=== PATIENT | female | born 1940 | race Caucasian/White ===

== ENCOUNTER 2019-03-12 21:16 | IRF | payer MEDICARE, OTHER, SELFPAY ==
--- NOTE | ~2019-03-12 | XR_ITS ---
EXAMINATION: XR chest 1V portable EXAM DATE: 03/12/2019 21:40 INDICATION: Check existing PICC line position. TECHNIQUE: Portable AP frontal chest x-ray was obtained. There is no prior study for comparison. FINDINGS: Right-sided PICC line is in expected position. There is cardiomegaly. There is pulmonary va scular congestion. Bilateral mid and lower lung zone indistinct reticulation, airspace disease appear ance most consistent with pulmonary edema. No sizable pleural effusion. No pneumothorax. There are no osseous abnormalities identified. There is aortic arterial sclerosis. IMPRESSION: 1. PICC line in position. 2. Cardiomegaly, indistinct reticulation, could be mild pulmonary edema. Clinical correlation. Reviewed, dictated and finalized at location A. GER IMPRESSION: 1. PICC line in position. 2. Cardiomegaly, indistinct reticulation, could be mild pulmonary edema. Clini danielle correlation.
--- NOTE | ~2019-03-12 | US_ITS ---
EXAMINATION: US venous doppler [facility] DATE: 03/17/2019 13:04 INDICATION: Bilateral lower limb pain TECHNIQUE: Be scale images without and with compression and Doppler images of the bilateral lower e xtremity veins were obtained. COMPARISON: None. FINDINGS: The right common femoral vein, profunda femoral vein, femoral vein, popliteal vein, peroneal trunk, p osterior tibial veins, and greater saphenous vein are patent. The left common femoral vein, profunda femoral vein, femoral vein, popliteal vein, peroneal trunk, po sterior tibial veins, and greater saphenous vein are patent. IMPRESSION: 1. Patent bilateral lower extremity veins. No evidence of deep venous thrombosis. Reviewed, dictated and finalized at location A. LER IMPRESSION: 1. Patent bilateral lower extremity veins. No evidence of deep venous thrombosi s.
[2019-03-12 18:05] VITALS: BP 148/78; PULSE 76; RESP 18; TEMP 36.6; O2SAT 96; BMI 29.7
--- NOTE | 2019-03-12 18:36 | ADMGEN ---
This patient, Danielle Mcintyre, was admitted to [facility] Room 222-02. Patient/family oriented to hospital policies and general routines including ID bracelet, bed and alarms, visiting hours, pain management, procedures, bathroom and other care routines, personal items, smoking policy, room service/diet, and visiting hours. Valuables list has been completed. Information on how to activate the Rapid Response Team has been discussed. Patient/Family are encouraged to report perceived risks to care and to ask questions if they do not understand what they are told or what they should do.
[2019-03-12 20:26] VITALS: BP 115/66; PULSE 98; RESP 20; TEMP 36.5; O2SAT 97
[2019-03-12] MEDS: RIVAROXABAN 15 MG TABLET PO (21:30)
[2019-03-12] MEDS: OPTI-GEN TAB 2 TABLET PO (21:30)
[2019-03-12] MEDS: SENNA/DOCUSATE SODIUM TABLET 1 TAB PO (21:30)
[2019-03-12] MEDS: ERTAPENEM 1 GM/NS 50 ML 1 GM/50 ML BAG IVPB (22:16)
[2019-03-13 04:52] LABS: Basophils Absolute Auto 0.1 K/mm3 (0.0-0.1); Basophils Percent Auto 0.6 % (0.2-1.2); Eosinophils Absolute Auto 0.3 K/mm3 (0-0.3); Eosinophils Percent Auto 2.6 % (0-4.4); Hematocrit 27.8 % (37.0-47.0); Hemoglobin 8.4 g/dL (12.0-15.0); Immature Granulocyte Absolute 0.31 K/mm3 (0.00-0.031); Immature Granulocyte Percent A 2.9 % (0-0.5); Lymphocytes Absolute Auto 0.95 K/mm3 (0.9-3.2); Lymphocytes Percent Auto 8.9 % (18.3-44.2); Mean Corpuscular HGB Conc 30.2 g/dl (32-36); Mean Corpuscular Hemoglobin 20.6 pg (26-34); Mean Corpuscular Volume 68.1 fl (80-100); Mean Platelet Volume 9.4 fl (7.4-10.4); Monocytes Absolute Auto 0.9 K/mm3 (0.1-0.6); Monocytes Percent Auto 8.2 % (2.6-8.5); Neutrophils Absolute Auto 8.2 K/mm3 (1.3-6.7); Neutrophils Percent Auto 76.8 % (45.5-73.1); Platelet Count Result 348 k/mm3 (150-375); Red Blood Count 4.08 M/mm3 (4.2-5.4); Red Cell Distribution Width 22.5 % (11.5-14.5); White Blood Count 10.7 K/mm3 (4.5-10.0)
[2019-03-13 05:20] LABS: Blood Urea Nitrogen 8 mg/dL (7-17); Calcium 9.1 mg/dL (8.4-10.2); Carbon Dioxide 24 mmol/L (22-30); Chloride 98 mmol/L (98-107); Estimated CRCL calculation 66 ml/min; Estimated Glomerular Filt Rate > 60; Glucose 128 mg/dL (65-105); Potassium 3.8 mmol/L (3.4-5.0); Sodium 133 mmol/L (137-145)
[2019-03-13 06:00] VITALS: BP 145/75; PULSE 98; RESP 18; TEMP 36.8; O2SAT 91
[2019-03-13] MEDS: polyethylene glycoL 3350 17 GM POWD.PACK PO (09:01)
[2019-03-13] MEDS: LORATADINE 10 MG TABLET PO (09:01)
[2019-03-13] MEDS: OPTI-GEN TAB 2 TABLET PO ×2 (09:01→21:10)
[2019-03-13] MEDS: FERROUS SULFATE 324 MG TABLET PO (09:02)
[2019-03-13] MEDS: ASPIRIN 81 MG CHEWABLE TABLET PO (09:02)
[2019-03-13] MEDS: CALCIUM/VITAMIN D 250 MG TABLET 1 TABLET PO (09:02)
[2019-03-13] MEDS: POTASSIUM CHLORIDE 10 MEQ TABLET.ER PO (09:02)
[2019-03-13] MEDS: ENALAPRIL MALEATE 5 MG TABLET PO (09:02)
[2019-03-13] MEDS: METOPROLOL SUCCINATE EXT REL 50 MG TABCR PO (09:02)
[2019-03-13 14:00] VITALS: BP 147/83; PULSE 86; RESP 20; TEMP 36.7; O2SAT 97
--- NOTE | 2019-03-13 16:12 | WPDREHABHP ---
H&P: HPI History of Present Illness Chief complaint: Right Septic Knee Arthritis Narrative: Danielle Mcintyre is a 78 year old female HISTORY OF PRESENT ILLNESS: The patient's primary rehab impairment category is orthopedic/other The etiologic diagnosis is right knee septic arthritis I saw this patient [id number] on March 13, 2019 at 1:30 p.m. The patient is a 78-year-old white woman with a past medical history of hypertension, osteoarthritis and atrial fibrillation who presented to [facility] and March 06, 2019 after initial evaluation at [facility] with severe pain and swelling in the right knee. Patient denies any prior symptoms in the right knee. That [facility] patient was found with mild leukocytosis with WBC of 12. CRP was elevated to 3.0. She underwent right knee arthrocentesis which revealed an elevated total nucleated cell count ( 87,000 close) and elevated RBCs) 20,000 closed) no differential included. [facility] micro lab reported no growth to date on synovial fluid as of March 16, 2019. drain was removed on March 09, 2019. Medical complications include leukocytosis, fevers, pain, postop hypoxia, and anemia requiring transfusion of 1 unit of packed RBCs in March 07, 2019. Leukocytosis remains with WBC at 10,500, she is afebrile stable on room air and hemodynamically stable with current hemoglobin of 7.4. It is worth mentioning that the patient was transferred to [facility] on vancomycin and cefepime. Due to concern for septic joint she was transferred to [facility] for surgical evaluation. Dr. Veloz performed an I and D with drain placement right knee and March 07, 2019. Rest of it as mentioned above. Patient is discharged to us at weight-bearing as tolerated on the right lower extremity and subcutaneous heparin for DVT prophylaxis. Infectious Disease was consulted and the antibiotics will be Entapenum 1 gram every 24 hours until April 04, 2019. PICC line was placed. Patient will need CBC with differential along with CMP and urinalysis weekly while on IV antibiotic. Incidental findings were a moderate pericardial effusion and echo from January 21, 2019. There was a large pericardial effusion visualized on TTE and March 10, 2019 and the patient is to follow up with outpatient cardiology Therapy was initiated at the acute care facility and the patient transferred to us from [facility] on March 12, 2019 FALLS OR SURGERIES: The patient has had major surgeries in the 100 days prior to admission. They had falls in the past year. They had falls with injury in the past year. PAST MEDICAL HISTORY: hypertension, atrial fibrillation, osteoarthritis, pericardial effusion. PAST SURGICAL HISTORY: Right knee arthrocentesis SOCIAL HISTORY: patient lives with her in a 1 level trailer with 2 steps to enter. Her son was present for the interview as is planning on building a ramp prior to the patient's discharged from inpatient rehab. The was also present. Both the and son confirms that the patient will have support following rehabilitation if needed. She was completely independent prior with no assistive device. She had her enjoy bowling. She reported no falls in the last year she underwent I and D of her right knee while hospitalized at [facility]. FAMILY HISTORY: Noncontributory PRIOR LEVEL OF FUNCTION: Eating was INDEPENDENT Oral Care was INDEPENDENT Toileting Hygiene was INDEPENDENT Shower/Bathing was INDEPENDENT Upper Body Dressing was INDEPENDENT Lower Body Dressing was INDEPENDENT Donning/[place] Footwear was INDEPENDENT Rolling Left and Right was INDEPENDENT Sit to Lying was INDEPENDENT Lying to Sitting was INDEPENDENT Sit to Stand was INDEPENDENT Bed to Chair Transfers was INDEPENDENT Toilet Transfers was INDEPENDENT Walkin
[2019-03-13] MEDS: RIVAROXABAN 15 MG TABLET PO (17:25)
[2019-03-13] MEDS: SENNA/DOCUSATE SODIUM TABLET 1 TAB PO (21:08)
[2019-03-13] MEDS: ERTAPENEM 1 GM/NS 50 ML 1 GM/50 ML BAG IVPB (21:09)
[2019-03-13 21:46] VITALS: BP 144/89; PULSE 78; RESP 16; TEMP 36.5; O2SAT 100
[2019-03-14 06:00] VITALS: BP 150/91; PULSE 99; RESP 20; TEMP 36.6; O2SAT 93
[2019-03-14 08:43] VITALS: PULSE 96
[2019-03-14] MEDS: OPTI-GEN TAB 2 TABLET PO ×2 (08:43→21:00)
[2019-03-14] MEDS: METOPROLOL SUCCINATE EXT REL 50 MG TABCR PO (08:43)
[2019-03-14] MEDS: polyethylene glycoL 3350 17 GM POWD.PACK PO (08:43)
[2019-03-14] MEDS: ENALAPRIL MALEATE 5 MG TABLET PO (08:44)
[2019-03-14] MEDS: LORATADINE 10 MG TABLET PO (08:44)
[2019-03-14] MEDS: POTASSIUM CHLORIDE 10 MEQ TABLET.ER PO (08:44)
[2019-03-14] MEDS: CALCIUM/VITAMIN D 250 MG TABLET 1 TABLET PO (08:44)
[2019-03-14] MEDS: ASPIRIN 81 MG CHEWABLE TABLET PO (08:44)
[2019-03-14] MEDS: FERROUS SULFATE 324 MG TABLET PO (08:44)
[2019-03-14] MEDS: ONDANSETRON HCL ODT 4 MG TABLET (08:46)
[2019-03-14 14:00] VITALS: BP 108/50; PULSE 84; RESP 18; TEMP 36.5; O2SAT 98
--- NOTE | 2019-03-14 14:01 | WPDNEURORHBP ---
Subjective Date/time seen: 03/14/19 14:01 Interval history: this 78-year-old woman is here because of right-sided septic knee arthritis she is much clearer in her head as per family member and slept well and does not have any new specific complaints She particularly denies fever chills sore throat headache nausea vomiting chest pain or shortness of breath Review of Systems Review of Systems: All systems reviewed & are unremarkable except as noted in HPI and below Constitutional: Constitutional: Reports no additional constitutional complaints Eyes: Eyes: Reports no additional eye complaints ENT: Reports system reviewed and no additional complaints, except as documented Cardiovascular: Cardiovascular: Reports no additional cardiovascular complaints Respiratory: Respiratory: Reports no additional respiratory complaints Gastrointestinal: Gastrointestinal: Reports no additional gastrointestinal complaints Musculoskeletal: Musculoskeletal: Reports no additional musculoskeletal complaints Integumentary/Breasts: Skin/Breast: Reports system reviewed and no additional complaints, except as docu Neurologic: Comments: patient's mental status has improved as per family member comparing to but she was at the other hospital when she was encephalopathic Psychiatric: Psychiatric: Reports no additional psychiatric complaints Functional Status Ambulation Ability Ability to Ambulate 10 Feet: Contact Guard Ambulation Assistive Devices: Walker, Wheeled Exam Const: General: comfortable and no acute distress HENMT: General nose exam: Normal nares present Mouth: Yes moist mucous membranes Eyes: General: appearance normal, both eyes and all related structures Neck: Neck: supple and no JVD Resp: Effort & Inspection: normal respiratory effort Auscultation: clear to auscultation bilaterally Cardio: Rate: regular rate Rhythm: regular rhythm GI: GI Palp: Yes Soft to palpation Auscultation: normal bowel sounds Skin: General skin exam: normal color and no rashes or lesions noted Neuro: Other: mental status is normal, cranial examination is normal Patient does have decrease strength in both upper lower extremity primarily in the lower extremities however engage in therapy and doing relatively better Extrem: Other: the incision over the right knee is clean and healthy and the swelling is less Psych: Mental Status: mental status grossly normal Objective Data Vital Signs Vital Signs: Vital Signs - 24 hr 03/13/19 21:46 03/14/19 06:00 03/14/19 08:43 Temperature 36.5 C 36.6 C Pulse Rate 78 99 96 Respiratory Rate 16 20 Blood Pressure 144/89 H 150/91 H Pulse Oximetry 100 93 Intake/Output Intake/Output: Intake & Output 01/23/20 01/24/20 01/25/20 01/26/20 23:59 23:59 23:59 23:59 Intake Total 50 720 240 Balance 50 720 240 Meds/Results Medications: Active Medications Generic Name Dose Route Start Last Admin Trade Name Freq PRN Reason Stop Dose Admin Hydrocodone Bitart/Acetaminophen 1 - 2 tab 03/13/19 09:14 03/14/19 08:53 Bruning 5-325 Mg PO 2 tab Q4-6H PRN Administration Pain Rated 4-6 Aspirin 81 mg 03/13/19 09:00 03/14/19 08:44 Aspirin Chewable PO 81 mg DAILY KATLIN Administration Bismuth Subsalicylate 524 mg 03/14/19 00:00 Pepto-Bismol Susp PO Q1H PRN Cramping Calcium Carbonate 1 tablet 03/13/19 09:00 03/14/19 08:44 Oscal +D 250 Mg PO 1 tablet DAILY KATLIN Administration Diltiazem HCl 180 mg 03/13/19 09:00 03/14/19 08:43 Cardizem Cd PO 180 mg DAILY KATLIN Administration Enalapril Maleate 5 mg 03/13/19 09:00 03/14/19 08:44 Vasotec PO 5 mg DAILY KATLIN Administration Ferrous Sulfate 324 mg 03/13/19 08:00 03/14/19 08:44 Ferrous Sulfate PO 324 mg DAILY@0800 KATLIN Administration Ertapenem 1 gm in 50 mls @ 100 mls/hr 03/12/19 21:00 03/13/19 21:09 Invanz 1 Gm/Ns 50 Ml IVPB 100 mls/hr HS KATLIN Administration Loratadine 1
[2019-03-14] MEDS: RIVAROXABAN 15 MG TABLET PO (18:22)
[2019-03-14] MEDS: ERTAPENEM 1 GM/NS 50 ML 1 GM/50 ML BAG IVPB (20:58)
[2019-03-14] MEDS: SENNA/DOCUSATE SODIUM TABLET 1 TAB PO (21:00)
[2019-03-14] MEDS: ONDANSETRON HCL ODT 4 MG TABLET PO (21:15)
[2019-03-14 22:00] VITALS: BP 142/87; PULSE 84; RESP 18; TEMP 36.9; O2SAT 91
[2019-03-15 06:00] VITALS: BP 169/81; PULSE 96; RESP 18; TEMP 36.6; O2SAT 94
[2019-03-15] MEDS: polyethylene glycoL 3350 17 GM POWD.PACK PO (09:10)
[2019-03-15] MEDS: FERROUS SULFATE 324 MG TABLET PO (09:10)
[2019-03-15] MEDS: LORATADINE 10 MG TABLET PO (09:11)
[2019-03-15] MEDS: CALCIUM/VITAMIN D 250 MG TABLET 1 TABLET PO (09:11)
[2019-03-15] MEDS: ASPIRIN 81 MG CHEWABLE TABLET PO (09:11)
[2019-03-15] MEDS: ENALAPRIL MALEATE 5 MG TABLET PO (09:11)
[2019-03-15] MEDS: METOPROLOL SUCCINATE EXT REL 50 MG TABCR PO (09:11)
[2019-03-15] MEDS: OPTI-GEN TAB 2 TABLET PO ×2 (09:11→23:03)
[2019-03-15] MEDS: POTASSIUM CHLORIDE 10 MEQ TABLET.ER PO (09:12)
--- NOTE | 2019-03-15 11:35 | PC.NURSE ---
Nurse flight attendant/inflight manager spoke with infection control. Pt. no longer requires isolation status.
--- NOTE | 2019-03-15 11:43 | RPD ---
INDIVIDUALIZED PLAN OF CARE FOR Danielle Mcintyre Brief Synthesis of Pre-Admission Screen, Post-Admission Evaluation and Therapy Evaluations: The patient presents to rehab with right knee septic arthritis. Comorbidities include hypertension, atrial fibrillation, osteoarthritis, hyperlipidemia, anemia. The patient requires physician services for medical oversight, management of post-op complications in setting of present comorbidities, and pain management. The patient requires nursing services for anticoagulation therapy, DVT prophylactics, IV administration, infection protection, medication management and education, pressure relief, and wound care. Deficits include:ADLs, Balance, Endurance, Mobility, Pain Management, ROM, Strength, Transfers, Safety Rn Security/Case Management for: Discharge Planning and Patient/Family Counseling Physical Therapy: 5 days per week for 90 minutes. Treatments may include: Therapeutic Exercise, Gait Training, Neuromuscular Re-education, Transfer Training, Community Reintegration, Bed Mobility, Patient/Family Education, Wheelchair Mobility Group Therapy/Concurrent Therapy Rationales: -Improve attention span during functional activities in a distracted environment. -Enhance problem solving and/or adequate judgment skills during functional activities in a distracted environment. -Promote increased safety awareness in a distracted environment to reduce fall risk with functional tasks, transfers, and ambulation to allow a more safe, self-sufficient return to the home environment. -Improve dynamic balance skills to promote safety and independence with functional activities in a distracted environment for maximum gain. Occupational Therapy: 5 days per week for 90 minutes. Treatments may include: Therapeutic Exercise, Therapeutic Activity, Cognitive Training, Self-Care Transfer Training, Community Reintegration, Home Management, Patient/Family Education, Wheelchair Mobility Training, Energy Conservation Training Group Therapy/Concurrent Therapy Rationales: -Allow therapist to observe and teach generalization and carry-over of skills learned in individual therapy. -Enhance problem solving and sequencing skills during therapeutic activities in a distracted environment. -Promote increased safety awareness in a realistic setting to reduce fall risk with functional tasks due to visual and verbal distractions. -Increase functional level with ADLs, ADL transfers and use of adaptive equipment through therapeutic activities with others while promoting safety to allow a more safe, self-sufficient return home. Medical Prognosis: Good Anticipated Length of Stay: 10 days Rehab Goals: Eating Goal: 06-Independent Oral Hygiene Goal: 06-Independent Toileting Hygiene Goal: 06-Independent Shower/Bathe Self Goal: 06-Independent Upper Body Dressing Goal: 06-Independent Lower Body Dressing Goal: 06-Independent Putting On/Taking Off Footwear Goal: 06-Independent Rolling Left and Right Goal: 06-Independent Sit to Lying Goal: 06-Independent Lying to Sitting on Side of Bed Goal: 06-Independent Sit to Stand Goal: 06-Independent Chair/[id number] Transfer Goal: 06-Independent Toilet Transfer Goal: 06-Independent Car Transfer Goal: 06-Independent Walk 10' Goal: 06-Independent Walk 50' with Two Turns Goal: 06-Independent Walk 150' Goal: 06-Independent Walk 10' on Uneven Surface Goal: 06-Independent 1 Step (Curb) Goal: 06-Independent 4 Steps Goal: 06-Independent 12 Steps Goal Score: 06-Independent Picking Up Object Goal: 06-Independent Anticipated discharge destination: Home
[2019-03-15 13:47] VITALS: BMI 29.7
[2019-03-15 14:36] VITALS: BP 121/50; PULSE 92; RESP 20; TEMP 36.9; O2SAT 93
[2019-03-15] MEDS: RIVAROXABAN 15 MG TABLET PO (17:21)
[2019-03-15] MEDS: ERTAPENEM 1 GM/NS 50 ML 1 GM/50 ML BAG IVPB (20:21)
[2019-03-15] MEDS: SENNA/DOCUSATE SODIUM TABLET 1 TAB PO (20:22)
[2019-03-15 22:00] VITALS: BP 145/73; PULSE 81; RESP 20; TEMP 36.4; O2SAT 93
[2019-03-16 06:00] VITALS: BP 150/66; PULSE 79; RESP 20; TEMP 36.2; O2SAT 92
[2019-03-16 10:30] VITALS: PULSE 79
[2019-03-16] MEDS: FERROUS SULFATE 324 MG TABLET PO (10:30)
[2019-03-16] MEDS: ASPIRIN 81 MG CHEWABLE TABLET PO (10:30)
[2019-03-16] MEDS: METOPROLOL SUCCINATE EXT REL 50 MG TABCR PO (10:30)
[2019-03-16] MEDS: CALCIUM/VITAMIN D 250 MG TABLET 1 TABLET PO (10:31)
[2019-03-16] MEDS: LORATADINE 10 MG TABLET PO (10:32)
[2019-03-16] MEDS: OPTI-GEN TAB 2 TABLET PO ×2 (10:32→21:08)
[2019-03-16] MEDS: ENALAPRIL MALEATE 5 MG TABLET PO (10:32)
[2019-03-16] MEDS: polyethylene glycoL 3350 17 GM POWD.PACK PO (10:33)
[2019-03-16] MEDS: POTASSIUM CHLORIDE 10 MEQ TABLET.ER PO (10:34)
--- NOTE | 2019-03-16 12:48 | WPDNEURORHBP ---
Subjective Date/time seen: 03/16/19 12:48 Interval history: this patient is recuperating on the acute rehab after having at rather stormy course with right septic knee arthritis she is receiving IV antibiotics and will needed till middle of March She denies any chest pain shortness of breath nausea vomiting headache chest pain fever chills Review of Systems Constitutional: Constitutional: Reports no additional constitutional complaints Eyes: Eyes: Reports no additional eye complaints ENT: Reports system reviewed and no additional complaints, except as documented Cardiovascular: Cardiovascular: Reports no additional cardiovascular complaints Respiratory: Respiratory: Reports no additional respiratory complaints Gastrointestinal: Gastrointestinal: Reports no additional gastrointestinal complaints Genitourinary: Genitourinary: Reports no additional female genitourinary complaints Musculoskeletal: Musculoskeletal: Reports no additional musculoskeletal complaints Integumentary/Breasts: Skin/Breast: Reports system reviewed and no additional complaints, except as docu Neurologic: Reports system reviewed and no additional complaints, except as documented Psychiatric: Psychiatric: Reports no additional psychiatric complaints Functional Status Ambulation Ability Ability to Ambulate 10 Feet: Contact Guard Ambulation Assistive Devices: Walker, Wheeled Exam Const: General: comfortable and no acute distress HENMT: General nose exam: Normal nares present Mouth: Yes moist mucous membranes Eyes: General: appearance normal, both eyes and all related structures Neck: Neck: no JVD Carotids: bruit Resp: Effort & Inspection: normal respiratory effort Auscultation: clear to auscultation bilaterally Cardio: Rate: regular rate Rhythm: regular rhythm GI: GI Palp: Yes Soft to palpation Auscultation: normal bowel sounds Objective Data Vital Signs Vital Signs: Vital Signs - 24 hr 03/15/19 14:36 03/15/19 22:00 03/16/19 06:00 Temperature 36.9 C 36.4 C 36.2 C L Pulse Rate 92 81 79 Respiratory Rate 20 20 20 Blood Pressure 121/50 L 145/73 H 150/66 H Pulse Oximetry 93 93 92 Intake/Output Intake/Output: Intake & Output 03/13/19 03/14/19 03/15/19 03/16/19 23:59 23:59 23:59 23:59 Intake Total 770 870 770 420 Balance 770 870 770 420 Meds/Results Medications: Active Medications Generic Name Dose Route Start Last Admin Trade Name Freq PRN Reason Stop Dose Admin Hydrocodone Bitart/Acetaminophen 1 - 2 tab 03/13/19 09:14 03/16/19 04:05 Yoder 5-325 Mg PO 1 tab Q4-6H PRN Administration Pain Rated 4-6 Aspirin 81 mg 03/13/19 09:00 03/16/19 10:30 Aspirin Chewable PO 81 mg DAILY KATLIN Administration Bismuth Subsalicylate 524 mg 03/14/19 00:00 Pepto-Bismol Susp PO Q1H PRN Cramping Calcium Carbonate 1 tablet 03/13/19 09:00 03/16/19 10:31 Oscal +D 250 Mg PO 1 tablet DAILY KATLIN Administration Diltiazem HCl 180 mg 03/13/19 09:00 03/16/19 10:31 Cardizem Cd PO 180 mg DAILY KATLIN Administration Enalapril Maleate 5 mg 03/13/19 09:00 03/16/19 10:32 Vasotec PO 5 mg DAILY KATLIN Administration Ferrous Sulfate 324 mg 03/13/19 08:00 03/16/19 10:30 Ferrous Sulfate PO 324 mg DAILY@0800 KATLIN Administration Ertapenem 1 gm in 50 mls @ 100 mls/hr 03/12/19 21:00 03/15/19 20:51 Invanz 1 Gm/Ns 50 Ml IVPB Infused HS KATLIN Infusion Loratadine 10 mg 03/13/19 09:00 03/16/19 10:32 Claritin PO 04/12/19 09:01 10 mg DAILY KATLIN Administration Metoprolol Succinate 50 mg 03/13/19 09:00 03/15/19 09:11 Toprol Xl PO 50 mg DAILY KATLIN Administration Multivitamins/Minerals 2 tablet 03/12/19 21:10 03/16/19 10:32 Ocuvite PO 2 tablet Q12HR KATLIN Administration Ondansetron HCl 4 mg 03/14/19 00:11 03/14/19 21:15 Zofran Odt PO 4 mg Q6H PRN Administration Nausea And Vomiting Polyethylene Glycol 17 gm 03/13/19 09:00
[2019-03-16 14:00] VITALS: BP 126/71; PULSE 90; RESP 18; TEMP 36.5; O2SAT 91
[2019-03-16] MEDS: RIVAROXABAN 15 MG TABLET PO (18:00)
[2019-03-16 20:33] VITALS: BP 144/69; PULSE 87; RESP 18; TEMP 36.1; O2SAT 97
[2019-03-16] MEDS: ERTAPENEM 1 GM/NS 50 ML 1 GM/50 ML BAG IVPB (21:06)
[2019-03-17 05:42] VITALS: BP 149/90; PULSE 81; RESP 18; TEMP 36.2; O2SAT 92
[2019-03-17 10:26] VITALS: PULSE 82
[2019-03-17] MEDS: METOPROLOL SUCCINATE EXT REL 50 MG TABCR PO (10:26)
[2019-03-17] MEDS: polyethylene glycoL 3350 17 GM POWD.PACK PO (10:26)
[2019-03-17] MEDS: ASPIRIN 81 MG CHEWABLE TABLET PO (10:27)
[2019-03-17] MEDS: POTASSIUM CHLORIDE 10 MEQ TABLET.ER PO (10:27)
[2019-03-17] MEDS: OPTI-GEN TAB 2 TABLET PO ×2 (10:27→20:58)
[2019-03-17] MEDS: FERROUS SULFATE 324 MG TABLET PO (10:27)
[2019-03-17] MEDS: ENALAPRIL MALEATE 5 MG TABLET PO (10:27)
[2019-03-17] MEDS: LORATADINE 10 MG TABLET PO (10:27)
[2019-03-17] MEDS: CALCIUM/VITAMIN D 250 MG TABLET 1 TABLET PO (10:27)
--- NOTE | 2019-03-17 12:41 | PC.NURSE ---
Patient left floor for dopplar of BLT LE
--- NOTE | 2019-03-17 13:06 | PC.NURSE ---
Patient returned to room
--- NOTE | 2019-03-17 13:57 | WPDNEURORHBP ---
Subjective Date/time seen: 03/17/19 13:57 Interval history: patient was complaining of pain in the right calf and also low his bad knees for which I order the venous Doppler and it was negative Otherwise patient has remained stable without any other complaints Review of Systems Constitutional: Constitutional: Reports no additional constitutional complaints Eyes: Eyes: Reports no additional eye complaints ENT: Reports system reviewed and no additional complaints, except as documented Cardiovascular: Cardiovascular: Reports no additional cardiovascular complaints Respiratory: Respiratory: Reports no additional respiratory complaints Gastrointestinal: Gastrointestinal: Reports no additional gastrointestinal complaints Genitourinary: Genitourinary: Reports no additional female genitourinary complaints Musculoskeletal: Musculoskeletal: Reports no additional musculoskeletal complaints Integumentary/Breasts: Skin/Breast: Reports system reviewed and no additional complaints, except as docu Neurologic: Reports system reviewed and no additional complaints, except as documented Psychiatric: Psychiatric: Reports no additional psychiatric complaints Functional Status Ambulation Ability Ability to Ambulate 10 Feet: Contact Guard Ambulation Assistive Devices: Walker, Wheeled Exam Const: General: comfortable and no acute distress HENMT: General nose exam: Normal nares present Mouth: Yes moist mucous membranes Eyes: General: appearance normal, both eyes and all related structures Neck: Neck: supple and no JVD Resp: Effort & Inspection: normal respiratory effort Auscultation: clear to auscultation bilaterally Cardio: Rate: regular rate Rhythm: regular rhythm GI: GI Palp: Yes Soft to palpation Auscultation: normal bowel sounds Skin: General skin exam: normal color and no rashes or lesions noted Neuro: Other: patient's strength and endurance is improving mental status is also improving memory is improving cranial examination is normal Extrem: Other: right knee is tender and decreased range of motions are noted obviously from the being treated septic arthritis right calf is tender however patient's venous Doppler is negative Psych: Mental Status: mental status grossly normal Objective Data Vital Signs Vital Signs: Vital Signs - 24 hr 03/16/19 14:00 03/16/19 20:33 03/17/19 05:42 Temperature 36.5 C 36.1 C L 36.2 C L Pulse Rate 90 87 81 Respiratory Rate 18 18 18 Blood Pressure 126/71 144/69 H 149/90 H Pulse Oximetry 91 97 92 03/17/19 10:26 Temperature Pulse Rate 82 Respiratory Rate Blood Pressure Pulse Oximetry Intake/Output Intake/Output: Intake & Output 03/14/19 03/15/19 03/16/19 03/17/19 23:59 23:59 23:59 23:59 Intake Total 685 640 7257 720 Balance 847 534 9074 720 Meds/Results Medications: Active Medications Generic Name Dose Route Start Last Admin Trade Name Freq PRN Reason Stop Dose Admin Hydrocodone Bitart/Acetaminophen 1 - 2 tab 03/13/19 09:14 03/17/19 10:25 Zullinger 5-325 Mg PO 1 tab Q4-6H PRN Administration Pain Rated 4-6 Aspirin 81 mg 03/13/19 09:00 03/17/19 10:27 Aspirin Chewable PO 81 mg DAILY KATLIN Administration Bismuth Subsalicylate 524 mg 03/14/19 00:00 Pepto-Bismol Susp PO Q1H PRN Cramping Calcium Carbonate 1 tablet 03/13/19 09:00 03/17/19 10:27 Oscal +D 250 Mg PO 1 tablet DAILY KATLIN Administration Diltiazem HCl 180 mg 03/13/19 09:00 03/17/19 10:27 Cardizem Cd PO 180 mg DAILY KATLIN Administration Enalapril Maleate 5 mg 03/13/19 09:00 03/17/19 10:27 Vasotec PO 5 mg DAILY KATLIN Administration Ferrous Sulfate 324 mg 03/13/19 08:00 03/17/19 10:27 Ferrous Sulfate PO 324 mg DAILY@0800 KATLIN Administration Ertapenem 1 gm in 50 mls @ 100 mls/hr 03/12/19 21:00 03/16/19 21:35 Invanz 1 Gm/Ns 50 Ml IVPB Infused HS KATLIN Infusion Loratadine 10 mg 03/13/19 09:00 03/17/19 10:27
[2019-03-17 14:00] VITALS: BP 131/72; PULSE 79; RESP 18; TEMP 35.9; O2SAT 97
[2019-03-17] MEDS: RIVAROXABAN 15 MG TABLET PO (20:47)
[2019-03-17] MEDS: SENNA/DOCUSATE SODIUM TABLET 1 TAB PO (20:48)
[2019-03-17] MEDS: ERTAPENEM 1 GM/NS 50 ML 1 GM/50 ML BAG IVPB (21:36)
[2019-03-17 21:51] VITALS: BP 143/69; PULSE 88; RESP 20; TEMP 36.6; O2SAT 94
[2019-03-18] MEDS: CALCIUM/VITAMIN D 250 MG TABLET 1 TABLET PO (09:37)
[2019-03-18] MEDS: FERROUS SULFATE 324 MG TABLET PO (09:37)
[2019-03-18] MEDS: ASPIRIN 81 MG CHEWABLE TABLET PO (09:37)
[2019-03-18 09:38] VITALS: PULSE 88
[2019-03-18] MEDS: LORATADINE 10 MG TABLET PO (09:38)
[2019-03-18] MEDS: OPTI-GEN TAB 2 TABLET PO ×2 (09:38→20:32)
[2019-03-18] MEDS: METOPROLOL SUCCINATE EXT REL 50 MG TABCR PO (09:38)
[2019-03-18] MEDS: ENALAPRIL MALEATE 5 MG TABLET PO (09:38)
[2019-03-18] MEDS: POTASSIUM CHLORIDE 10 MEQ TABLET.ER PO (09:39)
[2019-03-18] MEDS: polyethylene glycoL 3350 17 GM POWD.PACK PO (09:39)
--- NOTE | 2019-03-18 11:57 | WPDNEURORHBP ---
Subjective Date/time seen: 03/18/19 11:57 Interval history: patient is here with septic arthritis of the right and doing fairly well apart from complains of the pain around the knee and the leg the Doppler venous of lower extremities was negative for any DVT Review of Systems Constitutional: Constitutional: Reports no additional constitutional complaints Eyes: Eyes: Reports no additional eye complaints ENT: Reports system reviewed and no additional complaints, except as documented Cardiovascular: Cardiovascular: Reports no additional cardiovascular complaints Respiratory: Respiratory: Reports no additional respiratory complaints Gastrointestinal: Gastrointestinal: Reports no additional gastrointestinal complaints Genitourinary: Genitourinary: Reports no additional female genitourinary complaints Musculoskeletal: Comments: continues to complain of the right knee and the right leg pain Integumentary/Breasts: Skin/Breast: Reports system reviewed and no additional complaints, except as docu Neurologic: Reports system reviewed and no additional complaints, except as documented Functional Status Ambulation Ability Ability to Ambulate 10 Feet: Standby Assistance Ability to Ambulate 50 Feet With 2 Turns: Contact Guard Ambulation Assistive Devices: Walker, Wheeled Exam Const: General: comfortable and no acute distress HENMT: General nose exam: Normal nares present Mouth: Yes moist mucous membranes Eyes: General: appearance normal, both eyes and all related structures Neck: Neck: supple and no JVD Resp: Effort & Inspection: normal respiratory effort Auscultation: clear to auscultation bilaterally Cardio: Rate: regular rate Rhythm: regular rhythm GI: GI Palp: Yes Soft to palpation Auscultation: normal bowel sounds Skin: General skin exam: normal color and no rashes or lesions noted Other: the swelling of the right knee is less likewise swelling of the right lower extremity is less Neuro: Other: mental status examination is normal except some sundowning, cranial nerve examination is normal the strength is improving is still needing assistance in the activities of daily living Extrem: Other: right knee swelling is less and right leg swelling is less Psych: Mental Status: mental status grossly normal Objective Data Vital Signs Vital Signs: Vital Signs - 24 hr 03/17/19 14:00 03/17/19 21:51 03/18/19 09:38 Temperature 35.9 C L 36.6 C Pulse Rate 79 88 88 Respiratory Rate 18 20 Blood Pressure 131/72 143/69 H Pulse Oximetry 97 94 Intake/Output Intake/Output: Intake & Output 01/27/20 03/16/19 03/17/19 03/18/19 23:59 23:59 23:59 23:59 Intake Total 770 1190 1440 420 Balance 770 1190 1440 420 Meds/Results Medications: Active Medications Generic Name Dose Route Start Last Admin Trade Name Freq PRN Reason Stop Dose Admin Hydrocodone Bitart/Acetaminophen 1 - 2 tab 03/13/19 09:14 03/18/19 09:44 [place] 5-325 Mg PO 2 tab Q4-6H PRN Administration Pain Rated 4-6 Aspirin 81 mg 03/13/19 09:00 03/18/19 09:37 Aspirin Chewable PO 81 mg DAILY KATLIN Administration Bismuth Subsalicylate 524 mg 03/14/19 00:00 Pepto-Bismol Susp PO Q1H PRN Cramping Calcium Carbonate 1 tablet 03/13/19 09:00 03/18/19 09:37 Oscal +D 250 Mg PO 1 tablet DAILY KATLIN Administration Diltiazem HCl 180 mg 03/13/19 09:00 03/18/19 09:38 Cardizem Cd PO 180 mg DAILY KATLIN Administration Enalapril Maleate 5 mg 03/13/19 09:00 03/18/19 09:38 Vasotec PO 5 mg DAILY KATLIN Administration Ferrous Sulfate 324 mg 03/13/19 08:00 03/18/19 09:37 Ferrous Sulfate PO 324 mg DAILY@0800 KATLIN Administration Ertapenem 1 gm in 50 mls @ 100 mls/hr 03/12/19 21:00 03/17/19 21:36 Invanz 1 Gm/Ns 50 Ml IVPB 100 mls/hr HS KATLIN Administration Loratadine 10 mg 03/13/19 09:00 03/18/19 09:38 Claritin PO 04/12/19 09:01 10 mg DAILY KATLIN Administration Metoprolo
[2019-03-18 14:00] VITALS: BP 133/65; PULSE 74; RESP 17; TEMP 36.3; O2SAT 96
[2019-03-18] MEDS: RIVAROXABAN 15 MG TABLET PO (20:30)
[2019-03-18] MEDS: SENNA/DOCUSATE SODIUM TABLET 1 TAB PO (20:34)
[2019-03-18 22:00] VITALS: BP 161/81; PULSE 88; RESP 18; TEMP 36.6; O2SAT 93
[2019-03-19] MEDS: ERTAPENEM 1 GM/NS 50 ML 1 GM/50 ML BAG IVPB ×2 (01:07→20:14)
[2019-03-19 06:00] VITALS: BP 140/85; PULSE 88; RESP 18; TEMP 36.6; O2SAT 96
[2019-03-19] MEDS: ASPIRIN 81 MG CHEWABLE TABLET PO (09:37)
[2019-03-19] MEDS: FERROUS SULFATE 324 MG TABLET PO (09:37)
[2019-03-19] MEDS: ENALAPRIL MALEATE 5 MG TABLET PO (09:37)
[2019-03-19] MEDS: CALCIUM/VITAMIN D 250 MG TABLET 1 TABLET PO (09:37)
[2019-03-19 09:38] VITALS: PULSE 88
[2019-03-19] MEDS: LORATADINE 10 MG TABLET PO (09:38)
[2019-03-19] MEDS: METOPROLOL SUCCINATE EXT REL 50 MG TABCR PO (09:38)
[2019-03-19] MEDS: OPTI-GEN TAB 2 TABLET PO ×2 (09:38→23:28)
[2019-03-19] MEDS: polyethylene glycoL 3350 17 GM POWD.PACK PO (09:39)
[2019-03-19] MEDS: POTASSIUM CHLORIDE 10 MEQ TABLET.ER PO (09:39)
--- NOTE | 2019-03-19 10:52 | PCPTNOTE ---
Danielle Mcintyre was evaluated for a wheeled walker on 03/19/2019 by this physical therapist. The wheeled walker will resolve patient's mobility limitations and will be used for ADL's within the home. The patient can safely use the wheeled walker. ?The wheeled walker will resolve the patient?s mobility deficits, including transfers, walking in home, and completing ADL's. Edyta Casillas PT
--- NOTE | 2019-03-19 13:34 | WPDNEURORHBP ---
Subjective Date/time seen: 03/19/19 13:34 Interval history: patient is complaining of cough which probably is from upper respiratory infection she does not look septic of the however clearly is being treated with IV antibiotics for septic arthritis Overall status is improving she does not have any complaints of headache nausea vomiting chest pain or shortness She does have a right leg grams which they get better when she is laying down or keeps the leg propped up Review of Systems Constitutional: Constitutional: Reports no additional constitutional complaints Eyes: Eyes: Reports no additional eye complaints ENT: Reports system reviewed and no additional complaints, except as documented Cardiovascular: Cardiovascular: Reports no additional cardiovascular complaints Respiratory: Respiratory: Reports no additional respiratory complaints Gastrointestinal: Gastrointestinal: Reports no additional gastrointestinal complaints Genitourinary: Genitourinary: Reports no additional female genitourinary complaints Musculoskeletal: Musculoskeletal: Reports no additional musculoskeletal complaints Integumentary/Breasts: Skin/Breast: Reports system reviewed and no additional complaints, except as docu Neurologic: Reports system reviewed and no additional complaints, except as documented Psychiatric: Psychiatric: Reports no additional psychiatric complaints Functional Status Ambulation Ability Ability to Ambulate 10 Feet: Standby Assistance Ability to Ambulate 50 Feet With 2 Turns: Contact Guard Ambulation Assistive Devices: Walker, Wheeled Exam Const: General: comfortable and no acute distress HENMT: General nose exam: Normal nares present Mouth: Yes moist mucous membranes Eyes: General: appearance normal, both eyes and all related structures Neck: Neck: supple and no JVD Resp: Effort & Inspection: normal respiratory effort Auscultation: clear to auscultation bilaterally Cardio: Rate: regular rate Rhythm: regular rhythm GI: GI Palp: Yes Soft to palpation Auscultation: normal bowel sounds Skin: General skin exam: normal color and no rashes or lesions noted Neuro: Other: the decreased endurance and the ability to perform the activities of daily living is improving Extrem: Other: the right knee is relatively is swollen however better than before that is the knee where she had the septic arthritis Psych: Mental Status: mental status grossly normal Objective Data Vital Signs Vital Signs: Vital Signs - 24 hr 03/18/19 14:00 03/18/19 22:00 03/19/19 06:00 Temperature 36.3 C L 36.6 C 36.6 C Pulse Rate 74 88 88 Respiratory Rate 17 18 18 Blood Pressure 133/65 161/81 H 140/85 Pulse Oximetry 96 93 96 01/31/20 09:38 Temperature Pulse Rate 88 Respiratory Rate Blood Pressure Pulse Oximetry Intake/Output Intake/Output: Intake & Output 03/16/19 03/17/19 03/18/19 03/19/19 23:59 23:59 23:59 23:59 Intake Total 1190 1490 1140 1080 Balance 1190 1490 1140 1080 Meds/Results Medications: Active Medications Generic Name Dose Route Start Last Admin Trade Name Freq PRN Reason Stop Dose Admin Hydrocodone Bitart/Acetaminophen 1 - 2 tab 03/13/19 09:14 03/19/19 09:51 [place] 5-325 Mg PO 2 tab Q4-6H PRN Administration Pain Rated 4-6 Aspirin 81 mg 03/13/19 09:00 03/19/19 09:37 Aspirin Chewable PO 81 mg DAILY [facility] Administration Bismuth Subsalicylate 524 mg 03/14/19 00:00 Pepto-Bismol Susp PO Q1H PRN Cramping Calcium Carbonate 1 tablet 03/13/19 09:00 03/19/19 09:37 Oscal +D 250 Mg PO 1 tablet DAILY KATLIN Administration Diltiazem HCl 180 mg 03/13/19 09:00 03/19/19 09:37 Cardizem Cd PO 180 mg DAILY KATLIN Administration Enalapril Maleate 5 mg 03/13/19 09:00 03/19/19 09:37 Vasotec PO 5 mg DAILY KATLIN Administration Ferrous Sulfate 324 mg 03/13/19 08:00 03/19/19 09:37 Ferrous Sulfate PO 324 mg DAILY@0800 KATLIN Administration Erta
[2019-03-19 14:00] VITALS: BP 126/75; PULSE 66; RESP 18; TEMP 36.4; O2SAT 96
[2019-03-19] MEDS: RIVAROXABAN 15 MG TABLET PO (18:21)
[2019-03-19] MEDS: SENNA/DOCUSATE SODIUM TABLET 1 TAB PO (20:14)
[2019-03-19 22:00] VITALS: BP 158/63; PULSE 78; RESP 20; TEMP 36.3; O2SAT 96
[2019-03-20 05:26] LABS: Basophils Absolute Auto 0.1 K/mm3 (0.0-0.1); Basophils Percent Auto 0.4 % (0.2-1.2); Eosinophils Absolute Auto 0.4 K/mm3 (0-0.3); Eosinophils Percent Auto 3.4 % (0-4.4); Hematocrit 25.3 % (37.0-47.0); Hemoglobin 7.7 g/dL (12.0-15.0); Immature Granulocyte Absolute 0.13 K/mm3 (0.00-0.031); Immature Granulocyte Percent A 1.2 % (0-0.5); Lymphocytes Absolute Auto 1.36 K/mm3 (0.9-3.2); Lymphocytes Percent Auto 12.1 % (18.3-44.2); Mean Corpuscular HGB Conc 30.4 g/dl (32-36); Mean Corpuscular Hemoglobin 21.4 pg (26-34); Mean Corpuscular Volume 70.3 fl (80-100); Mean Platelet Volume 10.3 fl (7.4-10.4); Monocytes Absolute Auto 1.1 K/mm3 (0.1-0.6); Monocytes Percent Auto 9.7 % (2.6-8.5); Neutrophils Absolute Auto 8.3 K/mm3 (1.3-6.7); Neutrophils Percent Auto 73.2 % (45.5-73.1); Platelet Count Result 317 k/mm3 (150-375); White Blood Count 11.3 K/mm3 (4.5-10.0)
[2019-03-20 05:43] LABS: Blood Urea Nitrogen 18 mg/dL (7-17); Calcium 9.2 mg/dL (8.4-10.2); Carbon Dioxide 30 mmol/L (22-30); Chloride 96 mmol/L (98-107); Estimated CRCL calculation 57 ml/min; Estimated Glomerular Filt Rate > 60; Glucose 88 mg/dL (65-105); Potassium 3.7 mmol/L (3.4-5.0); Sodium 134 mmol/L (137-145)
[2019-03-20] MEDS: polyethylene glycoL 3350 17 GM POWD.PACK PO (10:15)
[2019-03-20] MEDS: FERROUS SULFATE 324 MG TABLET PO (10:15)
[2019-03-20] MEDS: ASPIRIN 81 MG CHEWABLE TABLET PO (10:15)
[2019-03-20 10:16] VITALS: PULSE 78
[2019-03-20] MEDS: ENALAPRIL MALEATE 5 MG TABLET PO (10:16)
[2019-03-20] MEDS: CALCIUM/VITAMIN D 250 MG TABLET 1 TABLET PO (10:16)
[2019-03-20] MEDS: METOPROLOL SUCCINATE EXT REL 50 MG TABCR PO (10:16)
[2019-03-20] MEDS: OPTI-GEN TAB 2 TABLET PO ×2 (10:16→21:00)
[2019-03-20] MEDS: LORATADINE 10 MG TABLET PO (10:16)
[2019-03-20] MEDS: POTASSIUM CHLORIDE 10 MEQ TABLET.ER PO (10:17)
[2019-03-20 14:00] VITALS: BP 132/70; PULSE 66; RESP 20; TEMP 36.4; O2SAT 94
[2019-03-20] MEDS: RIVAROXABAN 15 MG TABLET PO (18:21)
[2019-03-20] MEDS: SENNA/DOCUSATE SODIUM TABLET 1 TAB PO (21:00)
[2019-03-20] MEDS: ERTAPENEM 1 GM/NS 50 ML 1 GM/50 ML BAG IVPB (21:00)
[2019-03-20 22:00] VITALS: BP 143/89; PULSE 91; RESP 18; TEMP 37.2; O2SAT 92
[2019-03-20] MEDS: BISMUTH SUBSALICYLATE 262 MG CHEWABLE TABLET 524 MG PO (22:34)
[2019-03-21 06:00] VITALS: BP 135/75; PULSE 99; RESP 20; TEMP 36.8; O2SAT 98
[2019-03-21 09:55] VITALS: PULSE 99
[2019-03-21] MEDS: FERROUS SULFATE 324 MG TABLET PO (09:55)
[2019-03-21] MEDS: LORATADINE 10 MG TABLET PO (09:55)
[2019-03-21] MEDS: ENALAPRIL MALEATE 5 MG TABLET PO (09:55)
[2019-03-21] MEDS: ASPIRIN 81 MG CHEWABLE TABLET PO (09:55)
[2019-03-21] MEDS: METOPROLOL SUCCINATE EXT REL 50 MG TABCR PO (09:55)
[2019-03-21] MEDS: CALCIUM/VITAMIN D 250 MG TABLET 1 TABLET PO (09:55)
[2019-03-21] MEDS: polyethylene glycoL 3350 17 GM POWD.PACK PO (09:56)
[2019-03-21] MEDS: OPTI-GEN TAB 2 TABLET PO ×2 (09:56→22:01)
[2019-03-21] MEDS: POTASSIUM CHLORIDE 10 MEQ TABLET.ER PO (09:56)
--- NOTE | 2019-03-21 13:05 | WPDNEURORHBP ---
Subjective Date/time seen: 03/21/19 13:05 Interval history: no complaits sitting in chair comfortably Review of Systems Review of Systems: All systems reviewed & are unremarkable except as noted in HPI and below Functional Status Ambulation Ability Ability to Ambulate 10 Feet: Standby Assistance Ability to Ambulate 50 Feet With 2 Turns: Contact Guard Ambulation Assistive Devices: Walker, Wheeled Transfers Ability Ability to Transfer In/Out of Chair: Standby Assistance Exam Const: General: cooperative, comfortable and no acute distress Nutritional Appearance: average body habitus Orientation/consciousness: patient oriented x3 Eyes: General: appearance normal, both eyes and all related structures Neck: Neck: full ROM Resp: Effort & Inspection: normal respiratory effort Auscultation: clear to auscultation bilaterally Cardio: Rate: regular rate Rhythm: regular rhythm GI: Auscultation: normal bowel sounds Back/Spine/Pelvis: Other: right knee swollen but comfortable Neuro: General: patient oriented x3 Cranial nerves: Yes CN's II-XII intact bilaterally Speech: normal speech Psych: Appearance: grossly normal and well kempt Objective Data Vital Signs Vital Signs: Vital Signs - 24 hr 03/20/19 14:00 03/20/19 22:00 03/21/19 06:00 Temperature 36.4 C 37.2 C 36.8 C Pulse Rate 66 91 99 Respiratory Rate 20 18 20 Blood Pressure 132/70 143/89 H 135/75 Pulse Oximetry 94 92 98 03/21/19 09:55 Temperature Pulse Rate 99 Respiratory Rate Blood Pressure Pulse Oximetry Intake/Output Intake/Output: Intake & Output 03/18/19 03/19/19 03/20/19 03/21/19 23:59 23:59 23:59 23:59 Intake Total 1140 1180 800 200 Balance 1140 1180 800 200 Meds/Results Medications: Active Medications Generic Name Dose Route Start Last Admin Trade Name Freq PRN Reason Stop Dose Admin Hydrocodone Bitart/Acetaminophen 1 - 2 tab 03/13/19 09:14 03/19/19 23:28 [place] 5-325 Mg PO 2 tab Q4-6H PRN Administration Pain Rated 4-6 Aspirin 81 mg 03/13/19 09:00 03/21/19 09:55 Aspirin Chewable PO 81 mg DAILY KATLIN Administration Bismuth Subsalicylate 524 mg 03/20/19 13:35 03/20/19 22:34 Pepto-Bismol Chewable Tablet PO 524 mg Q1H PRN Administration Cramping Calcium Carbonate 1 tablet 03/13/19 09:00 03/21/19 09:55 Oscal +D 250 Mg PO 1 tablet DAILY KATLIN Administration Diltiazem HCl 180 mg 03/13/19 09:00 03/21/19 09:55 Cardizem Cd PO 180 mg DAILY KATLIN Administration Enalapril Maleate 5 mg 03/13/19 09:00 03/21/19 09:55 Vasotec PO 5 mg DAILY KATLIN Administration Ferrous Sulfate 324 mg 03/13/19 08:00 03/21/19 09:55 Ferrous Sulfate PO 324 mg DAILY@0800 KATLIN Administration Guaifenesin/Dextromethorphan 10 ml 03/19/19 13:34 Robitussin-Dm Syrup PO Q4H PRN Cough Ertapenem 1 gm in 50 mls @ 100 mls/hr 03/12/19 21:00 03/20/19 21:00 Invanz 1 Gm/Ns 50 Ml IVPB 03/21/19 23:59 100 mls/hr HS KATLIN Administration Ertapenem 1 gm in 50 mls @ 100 mls/hr 03/22/19 09:00 Invanz 1 Gm/Ns 50 Ml IVPB QAM KATLIN Loratadine 10 mg 03/13/19 09:00 03/21/19 09:55 Claritin PO 04/12/19 09:01 10 mg DAILY KATLIN Administration Metoprolol Succinate 50 mg 03/13/19 09:00 03/21/19 09:55 Toprol Xl PO 50 mg DAILY KATLIN Administration Multivitamins/Minerals 2 tablet 03/12/19 21:10 03/21/19 09:56 Ocuvite PO 2 tablet Q12HR KATLIN Administration Ondansetron HCl 4 mg 03/14/19 00:11 03/14/19 21:15 Zofran Odt PO 4 mg Q6H PRN Administration Nausea And Vomiting Polyethylene Glycol 17 gm 03/13/19 09:00 03/21/19 09:56 Miralax PO 17 gm DAILY KATLIN Administration Potassium Chloride 10 meq 03/13/19 09:00 03/21/19 09:56 Kcl Tablet PO 10 meq DAILY KATLIN Administration Rivaroxaban 15 mg 03/12/19 18:00 03/20/19 18:21 Xarelto PO 15 mg QPM KATLIN Administration Senna/Docusate Sodium 1 tab 03/12/19 21:00
[2019-03-21 14:00] VITALS: BP 137/61; PULSE 95; RESP 22; TEMP 37.1; O2SAT 90
[2019-03-21] MEDS: RIVAROXABAN 15 MG TABLET PO (18:02)
[2019-03-21] MEDS: ERTAPENEM 1 GM/NS 50 ML 1 GM/50 ML BAG IVPB (22:01)
[2019-03-21] MEDS: SENNA/DOCUSATE SODIUM TABLET 1 TAB PO (22:01)
[2019-03-21 22:04] VITALS: BP 145/71; PULSE 99; RESP 18; TEMP 36.6; O2SAT 97
[2019-03-22 06:00] VITALS: BP 144/85; PULSE 95; RESP 20; TEMP 37; O2SAT 92
[2019-03-22] MEDS: ASPIRIN 81 MG CHEWABLE TABLET PO (09:45)
[2019-03-22] MEDS: LORATADINE 10 MG TABLET PO (09:46)
[2019-03-22] MEDS: ENALAPRIL MALEATE 5 MG TABLET PO (09:46)
[2019-03-22] MEDS: CALCIUM/VITAMIN D 250 MG TABLET 1 TABLET PO (09:46)
[2019-03-22] MEDS: OPTI-GEN TAB 2 TABLET PO ×2 (09:46→21:04)
[2019-03-22] MEDS: POTASSIUM CHLORIDE 10 MEQ TABLET.ER PO (09:47)
[2019-03-22] MEDS: polyethylene glycoL 3350 17 GM POWD.PACK PO (09:47)
[2019-03-22] MEDS: ERTAPENEM 1 GM/NS 50 ML 1 GM/50 ML BAG IVPB (09:48)
[2019-03-22 09:55] VITALS: PULSE 95
[2019-03-22] MEDS: FERROUS SULFATE 324 MG TABLET PO (09:55)
[2019-03-22] MEDS: METOPROLOL SUCCINATE EXT REL 50 MG TABCR PO (09:55)
[2019-03-22] MEDS: LIDOCAINE 5% PATCH 1 PATCH TRANSDERM (10:04)
--- NOTE | 2019-03-22 13:41 | PCDIET ---
Nutrition Follow-Up Complete: Nutrition Diagnosis: Involuntary weight loss related to decreased appetite as evidenced by reported poor intake prior to admission and visible weight loss, per daughter in law. Nutrition Goals: Intakes >75%, stable weight. Intake goal met. Patient consumed average of 78% of meals since 03/16/19. Patient c/o poor appetite but has been taking Ensure Enlive with meals. Recommend continuing regular diet with supplements. Last recorded weight is 78.5 kg. Recommend obtaining new weight. Bowel Motility: Last documented bowel movement on 03/21/19. Labs Reviewed: Na (134), Hgb (7.7), Hct (25.3) Meds Noted: Oscal + D, Invanz, Ferrous Sulfate, Ocuvite, Miralax, KCl, Senna Additional Notes: Right knee incision; no documented pressure ulcers. Will continue to monitor with same goals. Nutrition Monitoring and Evaluation: Follow up in 7 days.
[2019-03-22 14:00] VITALS: BP 134/82; PULSE 84; RESP 16; TEMP 36.2; O2SAT 95
[2019-03-22] MEDS: RIVAROXABAN 15 MG TABLET PO (17:31)
[2019-03-22 20:23] VITALS: BP 138/86; PULSE 83; RESP 18; TEMP 36.6; O2SAT 92
[2019-03-22] MEDS: SENNA/DOCUSATE SODIUM TABLET 1 TAB PO (21:04)
[2019-03-23 06:00] VITALS: BP 154/86; PULSE 101; RESP 20; TEMP 36.7; O2SAT 93
[2019-03-23] MEDS: ASPIRIN 81 MG CHEWABLE TABLET PO (10:14)
[2019-03-23] MEDS: FERROUS SULFATE 324 MG TABLET PO (10:14)
[2019-03-23] MEDS: CALCIUM/VITAMIN D 250 MG TABLET 1 TABLET PO (10:14)
[2019-03-23] MEDS: LORATADINE 10 MG TABLET PO (10:15)
[2019-03-23] MEDS: ENALAPRIL MALEATE 5 MG TABLET PO (10:15)
[2019-03-23] MEDS: LIDOCAINE 5% PATCH 1 PATCH TRANSDERM (10:15)
[2019-03-23] MEDS: POTASSIUM CHLORIDE 10 MEQ TABLET.ER PO (10:16)
[2019-03-23] MEDS: OPTI-GEN TAB 2 TABLET PO (10:16)
[2019-03-23] MEDS: polyethylene glycoL 3350 17 GM POWD.PACK PO (10:17)
[2019-03-23] MEDS: ERTAPENEM 1 GM/NS 50 ML 1 GM/50 ML BAG IVPB (10:19)
[2019-03-23 10:21] VITALS: PULSE 104
[2019-03-23] MEDS: METOPROLOL SUCCINATE EXT REL 50 MG TABCR PO (10:21)
--- NOTE | 2019-03-23 11:59 | WPDNEURORHBP ---
Subjective Date/time seen: 03/23/19 11:59 Interval history: patient has been here for previous several days with septic arthritis has achieved the goals of over rehab and she is going to be discharged with continuation of the antibiotics and other medications next The patient denies any fever chills sore throat nausea vomiting chest pain or shortness of breath and happy to be discharged while her was present in the room the both are happy with the care the received Review of Systems Constitutional: Constitutional: Reports no additional constitutional complaints Eyes: Eyes: Reports no additional eye complaints ENT: Reports system reviewed and no additional complaints, except as documented Cardiovascular: Cardiovascular: Reports no additional cardiovascular complaints Respiratory: Respiratory: Reports no additional respiratory complaints Gastrointestinal: Gastrointestinal: Reports no additional gastrointestinal complaints Genitourinary: Genitourinary: Reports no additional female genitourinary complaints Musculoskeletal: Musculoskeletal: Reports no additional musculoskeletal complaints Integumentary/Breasts: Skin/Breast: Reports system reviewed and no additional complaints, except as docu Neurologic: Reports system reviewed and no additional complaints, except as documented Psychiatric: Psychiatric: Reports no additional psychiatric complaints Functional Status Ambulation Ability Ability to Ambulate 10 Feet: Standby Assistance Ability to Ambulate 50 Feet With 2 Turns: Contact Guard Ambulation Assistive Devices: Walker, Wheeled Transfers Ability Ability to Transfer In/Out of Chair: Minimum Assistance X 1 Exam Const: General: comfortable and no acute distress HENMT: General nose exam: Normal nares present Mouth: Yes moist mucous membranes Eyes: General: appearance normal, both eyes and all related structures Neck: Neck: supple and no JVD Resp: Effort & Inspection: normal respiratory effort Auscultation: clear to auscultation bilaterally Cardio: Rate: regular rate Rhythm: regular rhythm GI: GI Palp: Yes Soft to palpation Auscultation: normal bowel sounds Skin: General skin exam: normal color and no rashes or lesions noted Neuro: Other: patient's strength has improved in both upper lower extremities her mental status is decent likewise the cranial examination is also normal reflexes 1+ Babinski sign is negative Extrem: Other: right knee swollen and tenderness is much better Psych: Mental Status: mental status grossly normal Objective Data Vital Signs Vital Signs: Vital Signs - 24 hr 03/22/19 14:00 03/22/19 20:23 03/23/19 06:00 Temperature 36.2 C L 36.6 C 36.7 C Pulse Rate 84 83 101 H Respiratory Rate 16 18 20 Blood Pressure 134/82 138/86 154/86 H Pulse Oximetry 95 92 93 03/23/19 10:21 Temperature Pulse Rate 104 H Respiratory Rate Blood Pressure Pulse Oximetry Intake/Output Intake/Output: Intake & Output 03/20/19 03/21/19 03/22/19 03/23/19 23:59 23:59 23:59 23:59 Intake Total 624 434 7834 240 Balance 389 526 5957 240 Meds/Results Medications: Active Medications Generic Name Dose Route Start Last Admin Trade Name Freq PRN Reason Stop Dose Admin Aspirin 81 mg 03/13/19 09:00 03/23/19 10:14 Aspirin Chewable PO 81 mg DAILY [facility] Administration Bismuth Subsalicylate 524 mg 03/20/19 13:35 03/20/19 22:34 Pepto-Bismol Chewable Tablet PO 524 mg Q1H PRN Administration Cramping Calcium Carbonate 1 tablet 03/13/19 09:00 03/23/19 10:14 Oscal +D 250 Mg PO 1 tablet DAILY KATLIN Administration Diltiazem HCl 180 mg 03/13/19 09:00 03/23/19 10:14 Cardizem Cd PO 180 mg DAILY [facility] Administration Enalapril Maleate 5 mg 03/13/19 09:00 03/23/19 10:15 Vasotec PO 5 mg DAILY KATLIN Administration Ferrous Sulfate 324 mg 03/13/19 08:00 03/23/19 10:14 Ferrous Sulfate PO 324 mg DAILY@0800 [facility] Administration Guaifen
--- NOTE | 2019-03-23 13:44 | PC.NURSE ---
pt discharged and picc line dressing changed prior to discharge as well as knee dressing which site has a few sutures. Looks like gut sutures. Pt to follow up with [facility] D[facility].
--- NOTE | 2019-03-28 12:09 | PM.DS ---
DS: Diagnosis Admitting Diagnosis Admitting Diagnosis: Pyogenic arthritis, unspecified Discharge Diagnosis (1) Pericardial effusion: Code(s): I31.3 - Pericardial effusion (noninflammatory) Status: Acute (2) Osteoarthritis: Code(s): M19.90 - Unspecified osteoarthritis, unspecified site Status: Acute (3) Hypertension: Code(s): I10 - Essential (primary) hypertension Status: Acute (4) Atrial fib/flutter, transient: Status: Acute (5) Septic arthritis: Code(s): M00.9 - Pyogenic arthritis, unspecified Status: Acute DS: Summary Hospital Course Reason for hospitalization: the patient was well admitted with the above-mentioned condition on or acute rehab the primary reason was a septic arthritis with occasional confusion which had resolved to the course of hospitalization she sees the physical therapy of compression therapy and gait training Hospital Course: hospital course was relatively little complicated because of confusional episode which resolved during the course of hospitalization however no focal neurological deficit was noted. Patient's functional a Mitten measures at the time of admission of the goals are already mentioned in my history and physical examination she was able to achieve the following independent measures eating was independent oral hygiene was setup toileting was supervision bathing supervision upper body dressing was set up lower by resting supervision footwear was partial assistance rolling in bed independent sitting to lying independent lying to sitting independent [id number] supervision check transfer supervision toilet transfer supervision car transfer supervision walking 10 feet supervision walking 50 feet with to turn supervision to well as steps patient was unable to do it picking up objects supervision walking 150 feet patient was unable to do it walking 10 feet uneven surfaces supervision carb are step partial assistance Time Spent with Patient Time attestation: Total time spent providing and/or coordinating discharge services: Exam Const: General: comfortable and no acute distress HENMT: General nose exam: Normal nares present Mouth: Yes dry mucous membranes Eyes: General: appearance normal, both eyes and all related structures Neck: Neck: supple and no JVD Resp: Effort & Inspection: normal respiratory effort Auscultation: clear to auscultation bilaterally Cardio: Rate: regular rate Rhythm: regular rhythm GI: GI Palp: Yes Soft to palpation Auscultation: normal bowel sounds Neuro: Other: patient's mental status was within normal range cranial nerve exam shows normal her strength has improved in both upper lower extremities and she was better than when she came in Extrem: Other: the right knee swelling was much better and tenderness much med better Psych: Mental Status: mental status grossly normal DS: Data Data Completed and Pending Completed studies during hospitalization: [place] [address] hemoglobin of 7.7 and hematocrit of 25.3 and platelet count of 317 1000 Discharge Plan Discharge Attending physician on discharge: Jose Ramirez Discharging Clinician: Jose Ramirez Anticipated Discharge Date/Time: 03/23/19 12:02 Patient Disposition: Home Health Service Activity: may shower, no driving and as tolerated Diet: as tolerated Discharge Instructions: Per Care Coordination: Patient will have [facility] for home IV antibiotics. [facility] can be contacted at [phone] or [phone]. Patient will also have [facility] for assisted and IV care, as well as home therapy services. [facility] can be contacted at [phone]. RN please fax discharge instructions to [phone] Patient Instructions: Antibiotic Form Stand Alone Forms: General Discharge Information Follow-up/Referrals: Dr. Fish [Other] (Appointment on 03/17/19) Dr. Menchaca [Other] ( Follow-up with PCP upon dis
== END 2019-03-23 13:43 | disposition home health service (06) | DRG 560 ==
PROVIDERS: Admitting Provider Psychiatry & Neurology Neurology; Visit Provider Psychiatry & Neurology Neurology
DX: Z47.89 Encounter for other orthopedic aftercare (principal); M00.09 Staphylococcal polyarthritis; I31.3 Pericardial effusion (noninflammatory); F05 Delirium due to known physiological condition; M17.11 Unilateral primary osteoarthritis, right knee; D72.829 Elevated white blood cell count, unspecified; I10 Essential (primary) hypertension; I48.91 Unspecified atrial fibrillation; M79.661 Pain in right lower leg; R05 Cough
CPT/HCPCS: 36415; 71045; 80048; 85025; 87081; 93970; 97110; 97116; 97161; 97165; 97530; 97535; A9270; J1335